=== PATIENT | female | born 1950 | race Caucasian/White ===

== ENCOUNTER 2020-05-08 22:44 | Emergency (ER) | payer MEDICARE, OTHER ==
[~2020-05-08] VITALS: Ht 162.6 cm; Wt 71.7 kg
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
--- NOTE | 2020-05-08 23:06 | NUR ---
EMT AT BEDSIDE FOR EVAL
[2020-05-08] MEDS ORDERED: LIDOCAINE 1%-EPI 1:100,000 20 ML VIAL ONE (23:50)
[2020-05-08] MEDS ORDERED: TDAP [DIPH/PERTUSSIS/TET] 0.5 ML VIAL IM ONE (23:52)
[2020-05-08] MEDS: TDAP [DIPH/PERTUSSIS/TET] 0.5 ML VIAL IM ONE (23:58)
--- NOTE | 2020-05-08 23:58 | NUR ---
AT BEDSIDE FOR SUTURE
--- NOTE | 2020-05-09 00:35 | NUR ---
PT NOTED WITH BP OF 197/94 MD AWARE. OK FOR DISCHARGE
--- NOTE | 2020-05-09 00:37 | NUR ---
Patient discharged to home in stable condition. Written and verbal after care instructions given. Patient verbalizes understanding of instruction. Pt ambulatory with a steady gait
[2020-05-09 00:38] VITALS: BP 197/94
== END 2020-05-09 00:38 | disposition home or self-care (01) ==
LOC: ER 22:49
DX: S01.81XA Laceration without foreign body of other part of head, initial encounter (principal); S05.11XA Contusion of eyeball and orbital tissues, right eye, initial encounter; W01.0XXA Fall on same level from slipping, tripping and stumbling without subsequent striking against object, initial encounter; Y93.89 Activity, other specified; Y92.89 Other specified places as the place of occurrence of the external cause; Y99.8 Other external cause status
CPT/HCPCS: 12011; 70450; 70486; 72125; 90471; 90715; 99285; A6403; J3490

== ENCOUNTER 2022-12-29 23:54 | Emergency (ER) | payer MEDICARE, OTHER ==
[~2022-12-29] VITALS: Ht 162.6 cm; Wt 71.7 kg
--- NOTE | 2022-12-30 00:46 | NUR ---
BIBFAM C/O R ANKLE PAIN. DENIES ANY TRAUMA. SWELLING NOTED. PT AAOX4, IN NAD. LAYING COMFORTABLY, VITALS CHECKED.
--- NOTE | 2022-12-30 01:00 | NUR ---
XR AT BEDSIDE
--- NOTE | 2022-12-30 01:24 | NUR ---
US TECH AT PT'S BEDSIDE
--- NOTE | 2022-12-30 01:27 | NUR ---
NEEDLEWORKER AT BEDSIDE
[2022-12-30 01:50] LABS: CALCIUM, SERUM 8.8 mg/dL (8.5-10.1); CARBON DIOXIDE 26 mmol/L (21-32); CHLORIDE 105 mmol/L (98-107); CREATININE 0.8 mg/dL (0.6-1.3); GLUCOSE 96 mg/dL (74-106); POTASSIUM 4.1 mmol/L (3.5-5.1); SODIUM SERUM 140 mmol/L (136-145); UREA NITROGEN, BLOOD 29 mg/dL (7-18)
--- NOTE | 2022-12-30 02:52 | NUR ---
Patient discharged to home in stable condition. Written and verbal after care instructions given. Patient verbalizes understanding of instruction.
[2022-12-30 06:42] VITALS: BP 159/88
== END 2022-12-30 02:42 | disposition home or self-care (01) ==
LOC: ER 12-30 00:01
DX: S93.492A Sprain of other ligament of left ankle, initial encounter (principal); I10 Essential (primary) hypertension; Y93.01 Activity, walking, marching and hiking; Y92.89 Other specified places as the place of occurrence of the external cause; Y99.8 Other external cause status
CPT/HCPCS: 36415; 73610-TC; 73630-TC; 76882; 80048-TC